=== PATIENT | female | born 1950 | race Caucasian/White ===

== ENCOUNTER → 2018-06-09 | Day surgery (SDC) | payer MEDICARE, OTHER ==
[2018-06-07 14:04] LABS: BASOPHILS # (AUTO) 0.1 (0.0-0.1); BASOPHILS % 0.7 % (0.0-1.0); EOSINOPHILS # (AUTO) 0.3 (0.0-0.4); EOSINOPHILS % 2.7 % (0.0-6.0); HEMATOCRIT 41.2 % (34.2-44.1); HEMOGLOBIN 13.7 g/dL (12.0-16.0); LYMPHOCYTES # (AUTO) 1.8 (1.0-3.2); MEAN CORPUSCULAR HEMOGLOBIN 27.9 pg (28-32); MEAN CORPUSCULAR HGB CONC 33.3 g/dL (31-35); MEAN CORPUSCULAR VOLUME 83.9 fL (81-99); MONOCYTES # (AUTO) 0.7 (0.2-0.8); MONOCYTES % 7.2 % (4.4-11.3); NEUTROPHILS # (AUTO) 6.5 (2.1-6.9); NEUTROPHILS % 70.2 % (38.7-80.0); PLATELET COUNT 346 x10e3/uL (140-360); RED BLOOD COUNT 4.91 x10e6/uL (3.6-5.1); RED CELL DISTRIBUTION WIDTH 13.1 % (11.7-14.4)
[2018-06-07 14:20] LABS: ANION GAP 14.3 mmol/L (8-16); CALCIUM 10.1 mg/dL (8.4-10.2); CREATININE, SERUM 0.98 mg/dL (0.57-1.11); POTASSIUM 3.3 mmol/L (3.5-5.1)
--- NOTE | 2018-06-07 15:01 | Diagnostic Imaging Report ---
EXAMINATION: CHEST 2 VIEWS INDICATION: ^MD ORDER ^[id number] ^[id number] ^PRE ADMIT COMPARISON: None FINDINGS: PA and lateral views TUBES and LINES: None. LUNGS: Lungs are well inflated. There is no evidence of pneumonia or pulmonary edema. PLEURA: No pleural effusion or pneumothorax. HEART AND MEDIASTINUM: The cardiomediastinal silhouette is unremarkable. BONES AND SOFT TISSUES: No acute osseous lesion. Soft tissues are unremarkable. UPPER ABDOMEN: No free air under the diaphragm. IMPRESSION: No acute thoracic abnormality. Signed by: Dr. Slava Lozano MD on 06/07/2018 2:57 PM
[~2018-06-09] MED LIST: ADVIL200 MG PO; BENICAR HCT 401 EAC1 PO; BUPIVACAINE 0.25% 30ML SDV INJ ONE; DEXAMETHASONE SOD PHOS INJ 4 MG/ML VIAL ONE; EPHEDRINE SULFATE INJ 50 MG/10 ML SYR ONE; FENTANYL CITRATE/PF 100MCG/2 ML INJ ONE; KETOROLAC TROMETHAMINE 30 MG/ML VIAL ONE; LIDOCAINE HCL 2% LOCAL INJ 5 ML SDV VIAL INJ ONE; MIDAZOLAM HCL 2 MG/2 ML VIAL ONE; ONDANSETRON HCL INJ 2MG/ML 2ML 2 MG/ML VIAL ONE; PRAVASTATIN SOD40 MG PO; PRISTIQ ER50 MG PO; PROPOFOL IV EMULSION 10 MG/ML 20 ML VIAL ONE; SEVOFLURANE INHAL SOLN 250 ML PEN BTL ONE
--- OUTSIDE RECORDS SUMMARY | 2018-06-09 07:59 | XMS REPORT | Clinical Summary ---
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 Take as 8 PREP KIT) 17.5-3.13-1.6 directed. gram recon soln Active Problems No known active problems Encounters Care Team Description Date Type Specialty Efrem Holbrook PA-C Primary osteoarthritis of left knee (Primary Dx) 01/19/2018 Clinical Orthopedic Surgery Support Franco Noriega MD Primary osteoarthritis of left knee (Primary Dx) 01/11/2018 Office Visit Orthopedic Surgery Wendy Clement LVN 12/14/2017 Telephone Gastroenterology Evita Scott MD 12/08/2017 Lab Lab Evita Scott MD Colonoscopy 12/08/2017 Documentation Gastroenterology Evita Scott MD 12/06/2017 Telephone Gastroenterology Manju Gonzalez MA 11/22/2017 Telephone Gastroenterology Efrem Holbrook PA-C Primary osteoarthritis of left knee (Primary Dx) 10/07/2017 Office Visit Orthopedic Surgery Evita Scott MD 10/06/2017 Telephone Gastroenterology after 06/08/2017 Social History Date Tobacco Use Types Packs/Day Years Used Never Assessed Sex Assigned at Date Recorded Not on file Industry Job Start Date Occupation Not on file Not on file Not on file Travel End Travel History Travel Start No recent travel history available. Last Filed Vital Signs Not on file Plan of Treatment Health Maintenance Due Date Last Done Comments BREAST CANCER SCREENING 2001 SHINGLES VACCINES (1 of 2001 2) PNEUMOCOCCAL 2016 POLYSACCHARIDE VACCINE AGE 65 AND OVER PNEUMOCOCCAL-13 2016 INFLUENZA VACCINE 11/23/2017 COLON CANCER SCREENING 12/08/2022 12/08/2017 Procedures Comments Procedure Name Priority Date/Time Associated Diagnosis MD ARTHROCENTESIS Routine 01/19/2018 Primary osteoarthritis of ASPIR&/INJ MAJOR JT/BURSA 11:15 AM CDT left knee W/O US MD ARTHROCENTESIS Routine 01/11/2018 Primary osteoarthritis of ASPIR&/INJ MAJOR JT/BURSA 10:30 AM CDT left knee W/O US SURGICAL PATHOLOGY Routine 12/08/2017 REQUEST 2:34 PM CDT MD ARTHROCENTESIS Routine 10/07/2017 Primary osteoarthritis of ASPIR&/INJ MAJOR JT/BURSA 11:15 AM CDT left knee W/O US after 06/08/2017 Results * Large Joint Arthrocentesis (01/19/2018 11:15 AM CDT) Narrative Performed At Efrem Holbrook PA-C 01/19/20181:47 PM Large Joint Arthrocentesis Consent given by: patient Site marked: site marked Timeout: Immediately prior to procedure a time out was called to verify the correct patient, procedure, equipment, office support specialist and site/side marked as required Supporting Documentation Indications: pain Procedure Details Preparation: Patient was prepped and draped in the usual sterile fashion Ultrasound guided: no Platelet Rich Plasma Used: no PRP Used Location: knee - L knee Left side: Needle size: 22 G Approach: lateral Left knee medications administered: 40 mg methylPREDNISolone acetate 40 mg/mL; 2 mL lidocaine 10 mg/mL (1 %); 2 mL sodium hyaluronate (viscosup) 30 mg/2 mL Patient tolerance: patient tolerated the procedure well with no immediate complications * Large Joint Arthrocentesis (01/11/2018 10:30 AM CDT) Narrative Performed At Franco Noriega MD 01/19/20182:28 PM Large Joint Arthrocentesis Consent given by: patient Site marked: site marked Timeout: Immediately prior to procedure a time out was called to verify the correct patient, procedure, equipment, office support specialist and site/side marked as required Supporting Documentation Indications: pain Procedure Details Preparation: Patient was prepped and draped in the usual sterile fashion Ultrasound guided: no Platelet Rich Plasma Used: no PRP Used Location: knee - R knee Right side: Needle size: 22 G Approach: lateral Right knee medications administered: 40 mg methylPREDNISolone acetate 40 mg/mL; 2 mL lidocaine 10 mg/mL (1 %); 2 mL sodium hyaluronate (viscosup) 30 mg/2 mL Patient tolerance: patient tolerated the procedure well with no immediate complications * Surgical pathology request (12/08/2017 2:34 PM CDT) [facility] DEPARTMENT OF PATHOLOGY AND GENOMIC MEDICINE Surgical pathology report See link below for PDF Lab [facility] DEPARTMENT OF Report PATHOLOGY AND GENOMIC MEDICINE Result status This is Final Report for [facility] DEPARTMENT OF [id number] PATHOLOGY AND GENOMIC MEDICINE Performing Organization Address City/State/Zipcode Phone Number [facility] DEPARTMENT OF [address] [place] [address] PATHOLOGY AND GENOMIC MEDICINE * Large Joint Arthrocentesis (10/07/2017 11:15 AM CDT) Narrative Performed At Efrem Holbrook PA-C 10/07/20172:09 PM Large Joint Arthrocentesis Consent given by: patient Site marked: site marked Timeout: Immediately prior to procedure a time out was called to verify the correct patient, procedure, equipment, office support specialist and site/side marked as required Supporting Documentation Indications: pain Procedure Details Preparation: Patient was prepped and draped in the usual sterile fashion Ultrasound guided: no Platelet Rich Plasma Used: no PRP Used Location: knee - L knee Left side: Needle size: 22 G Approach: lateral Left knee medications administered: 80 mg methylPREDNISolone acetate 40 mg/mL; 5 mL lidocaine 10 mg/mL (1 %) Patient tolerance: patient tolerated the procedure well with no immediate complications after 06/08/2017 Insurance Payer Benefit Subscriber ID Type Phone Address Plan / Group MEDICARE MEDICARE xxxxxxxxxx Medicare [place], [place] PART A AND B HUMANA HUMANA xxxxxxxxx PPO CHOICE CARE PPO Advance Directives Patient has advance care planning documents on file. For more information, pleas e contact: Chicho Ceballos [address] [place] [address]
--- OUTSIDE RECORDS SUMMARY | 2018-06-09 07:59 | XMS REPORT ---
Author Author [facility] Address Unknown Phone Unavailable Care Team Providers Care Analysis Manager Name Role Phone LILLIAN JEAN BAPTISTE Unavailable Unavailable ARTUR MATA Unavailable Unavailable Problems This patient has no known problems. Allergies, Adverse Reactions, Alerts This patient has no known allergies or adverse reactions. Medications This patient has no known medications. Results Test Description Test Time Test Comments Text Results Atomic Results Result Comments CHEST 2 VIEWS 2018-06-07 14:57:00 [place] [id number] Patient Name: IDALIA REED MR #: [id number] : 1950 Age/Sex: 68/F Req #: [id number] Adm Physician: Ordered by: LILLIAN JEAN BAPTISTE DP Report #: [id number] Location: OR Room/Bed: Procedure: [id number] DX/CHEST 2 VIEWS Exam Date: 06/07/18 Exam Time: 1355 REPORT STATUS: Signed EXAMINATION: CHEST 2 VIEWS INDICATION: MD ORDER [id number] PRE ADMIT COMPARISON: None FINDINGS: PA and lateral views TUBES and LINES: None. LUNGS: Lungs are well inflated. There is no evidence of pneumonia or pulmonary edema. PLEURA: No pleural effusion or pneumothorax. HEART AND MEDIASTINUM: The cardiomediastinal silhouette is unremarkable. BONES AND SOFT TISSUES: No acute osseous lesion. Soft tissues are unremarkable. UPPER ABDOMEN: No free air under the diaphragm. IMPRESSION: No acute thoracic abnormality. Signed by: Dr. Slava Barbosa MD on 06/07/2018 2:57 PM Dictated By: SLAVA BARBOSA MD 56 Transcribed By: ALIVIA on 06/07/181456 COPY TO: LILLIAN JEAN BAPTISTE DPIsac SINUS CULTURE + GRAM STAIN 2017 09:12:00 CULTURE (BEAKER) (test bwah=6957) No growth GRAM STAIN RESULT (BEAKER) (test colt=2700) <1+ WBCs GRAM STAIN RESULT (BEAKER) (test xpih=[id number]) No organisms seen
--- OUTSIDE RECORDS SUMMARY | 2018-06-09 07:59 | XMS REPORT | Continuity of Care Document ---
Author Author [facility] Address Unknown Phone Unavailable Problems Problem Status Onset Date Classification Date Reported Comments Source Acute upper respiratory infection 03/08/2017 Diagnosis 03/08/2017 [facility] Pain in throat 03/08/2017 Diagnosis 03/08/2017 [facility] Feeling feverish 03/08/2017 Diagnosis 03/08/2017 [facility] Tachycardia 03/08/2017 Diagnosis 03/08/2017 [facility] Medications Medication Details Route Status Patient Instructions Ordering Provider Order Date Source benzonatate 200 MG Oral Capsule benzonatate 200 mg capsule Take 1 capsule 3 times a day by oral route as needed. Active [facility] Hydrochlorothiazide 25 MG / Olmesartan medoxomil 40 MG Oral Tablet olmesartan 40 mg-hydrochlorothiazide 25 mg tablet Active [facility] Pravastatin Sodium 40 MG Oral Tablet pravastatin 40 mg tablet Active [facility] 24 HR desvenlafaxine succinate 100 MG Extended Release Oral Tablet [Pristiq] Pristiq 100 mg tablet,extended release Active [facility] Allergies, Adverse Reactions, Alerts Substance Category Reaction Severity Reaction type Status Date Reported Comments Source Immunizations Immunization Date Given Site Status Last Updated Comments Source pneumococcal, unspecified formulation 04/25/2015 completed [facility] Results Order Name Results Value Reference Range Date Interpretation Comments Source Influenza A negative 03/08/2017 [facility] Influenza B negative 03/08/2017 [facility] RESULT negative 03/08/2017 [facility] SWAB LOCATION Left and Right tonsillar pillars 03/08/2017 [facility] Vital Signs Vital Sign Value Date Comments Source Diastolic (mm Hg) 84 03/08/2017 [facility] Height 59 03/08/2017 [facility] Systolic (mm Hg) 142 03/08/2017 [facility] Weight 155 03/08/2017 [facility] Encounters Location Location Details Encounter Type Encounter Number Reason For Visit Attending Provider ADM Date DC Date Status Source [place] - [facility] - [id number] Gaffney-C: [address] [place] [address], Ph. [id number] Kurt Denton 03/08/2017 [facility] Procedures Procedure Code Date Perfomer Comments Source Tonsillectomy [facility] Hysterectomy [facility]
--- OUTSIDE RECORDS SUMMARY | 2018-06-09 07:59 | XMS REPORT | Clinical Summary ---
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 Last Filed Vital Signs Not on file Plan of Treatment Not on file Results Not on fileafter 06/08/2017 Insurance Payer Benefit Subscriber ID Type Phone Address Plan / Group MEDICARE MEDICARE A xxxxxxxxxx Medicare B
--- OUTSIDE RECORDS SUMMARY | 2018-06-09 07:59 | XMS REPORT | Encounter Summary ---
Author Organization Unknown Address [address] [place] [address] Phone [phone] Reason for Visit Medical Complaint Instructions 1. Acute upper respiratory infection upper respiratory infection (cold): care instructions benzonatate 200 mg capsule 2. Pain in throat sore throat: care instructions rapid strep group A, throat 3. Feeling feverish rapid flu (A+B) 4. Tachycardia Discussion Note: None recorded. Plan of Care Patient Instructions consider a trial of flonase and zyrtec if you havent already. follow up pcp and recheck HR Reminders Provider Appointments None recorded. Lab Rapid Strep Group a, Throat 03/08/2017 [facility] Rapid Flu (A+B) 03/08/2017 [facility] Referral None recorded. Procedures None recorded. Surgeries None recorded. Imaging None recorded. Medications Name Start Date benzonatate 200 mg capsule Take 1 capsule 3 times a day by oral route as needed. olmesartan 40 mg-hydrochlorothiazide 25 mg tablet pravastatin 40 mg tablet Pristiq 100 mg tablet,extended release Medications Administered None recorded. Vitals Height Weight BMI Blood Pressure 4 ft 11 in 155 lbs 31.3 kg/m2 142/84 mm[Hg] Lab Results Date Name Specimen Result Interpretation Description Value Range Status Address Rapid Flu (A+B) Influenza a negative [facility]: [address] [place] [address] Influenza B negative [facility]: [address] [place] [address] Rapid Strep Group a, Throat Result negative [facility]: [address] [place] [address] Swab Location Left and Right tonsillar pillars [facility]: [address] [place] [address] Allergies Code Code System Name Reaction Severity Status Onset NKDA Problems None recorded. Procedures Date Name Performed by Tonsillectomy Information not available Hysterectomy Information not available Vaccine List Vaccine Type pneumococcal, unspecified formulation 04/25/2015 Social History None recorded. Past Encounters 03/08/2017 Acute Upper Respiratory Infection; Pain in Throat; Feeling Feverish; Tachycardia WAYNE Adler-C: [address] [place] [address], Ph. History of Present Illness [id number] Reported By: Patient HPI: Location: head/sinuses, throat. Quality: sore throat, nasal/sinus congestion, dry cough. Duration: 1days. Severity: mild, moderate. Onset/Timing: gradual. Context: no sick contacts, no foreign travel, non-smoker. Associated Symptoms: no sputum production, no shortness of breath, no wheezing, no change in number of pillows needed to sleep at night, no sweats, no significant weight gain, no significant weight loss, no morning cough, no vomiting, no diarrhea, no rash, no nausea, no fever, no headache, sore throat, muscle aches Review of Systems:ROS as noted in the HPI Review of Systems Basic Reported By: Patient Physical Exam Adult Basic, Adult Female Complete Reported By: Patient Constitutional: General Appearance: healthy-appearing, well-nourished, well-developed. Level of Distress: NAD. Ambulation: ambulating normally Psychiatric: Mental Status: active and alert Eyes: Lids and Conjunctivae: non-injected, no discharge Umi-Xyrg-Mqhag-Throat: Ears: no lesions on external ear, no outer ear tenderness, EACs clear, TMs clear. Hearing: no hearing loss. Nose: no lesions on external nose, sinus tenderness; congestion. Lips, Teeth, and Gums: no mouth or lip ulcers. Oropharynx: moist mucous membranes, no erythema, no exudates, tonsils not enlarged Neck: Neck: trachea midline. Lymph Nodes: no cervical LAD Lungs: Respiratory effort: no dyspnea, no tachypnea, no use of accessory muscles, no intercostal retractions. Auscultation: breath sounds normal Cardiovascular: Heart Auscultation: no murmurs, tachycardia
[2018-06-09 12:25] VITALS: BP 132/69
--- NOTE | 2018-06-09 16:18 | Operative Report ---
DATE OF PROCEDURE: June 09, 2018 PREOPERATIVE DIAGNOSIS: Dalton fracture, transverse 5th metatarsal fracture of the right foot. POSTOPERATIVE DIAGNOSES: Dalton fracture, transverse 5th metatarsal fracture of the right foot. TITLE OF OPERATION: Open reduction with internal fixation, 5th metatarsal midshaft right foot. ANESTHESIA: General endotracheal. HEMOSTASIS: A right thigh tourniquet at 350 mmHg. PROCEDURE IN DETAIL: The patient was taken to the operating room in a mildly sedated state and placed upon the operating table in supine position. Following induction of general anesthetic, the right lower extremity was elevated to 60 degrees to exsanguinate before inflating the pneumatic thigh tourniquet to 350 mmHg to create hemostasis. Right lower extremity was placed upon the operating table prior to performing the following procedure. Procedure number 1 was open reduction with internal fixation, 5th metatarsal of the right foot. Under fluoroscopy an incision was placed linearly across the midshaft Dalton fracture area on the right foot. The incision was deepened via sharp and blunt dissection down to the level of the transverse metatarsal fracture. This having been accomplished, the area was reduced with 0.045 K-wire fixation, and then a 12 mm bone staple was used to advance from lateral to medial holding proper orientation, and then a second 12 mm staple was used dorsal to plantar to further fixate the midshaft Dalton fracture. The area was irrigated with copious amounts of sterile saline solution. Deep closure was 3-0 Vicryl, subcutaneous closure 4-0 Vicryl and skin closure 4-0 nylon. The areas of surgery were then blocked with 0.5 Marcaine and Decadron [place]. A human tissue allograft was used to facilitate healing in this fairly avascular area with mildly osteonecrotic bone. Patient tolerated both the anesthetic and procedure very well and is released today to remain nonweightbearing on the right foot until further instruction in the office. Job#: [id number]
== END | disposition home or self-care (01) ==
LOC: OR 07:57
PROVIDERS: ATTEND Podiatrist Foot Surgery
DX: S92.351A Displaced fracture of fifth metatarsal bone, right foot, initial encounter for closed fracture (principal); M79.671 Pain in right foot; Z01.810 Encounter for preprocedural cardiovascular examination; Z01.812 Encounter for preprocedural laboratory examination; Z01.811 Encounter for preprocedural respiratory examination; E78.5 Hyperlipidemia, unspecified
CPT/HCPCS: 28485; 36415; 71046; 76000; 80048; 85025; 93005; C1762; J1100; J1885; J2001; J2250; J2405; J2704